=== PATIENT | female | born 1995 | race African-American/Black ===

== ENCOUNTER 2018-07-19 12:06 | Emergency (ER) | payer OTHER ==
[~2018-07-19] VITALS: Ht 157.5 cm; Wt 83.9 kg
[~2018-07-19 12:06] MED LIST: OFLO5DRO OS
[2018-07-19 12:15] VITALS: BP 122/56
--- NOTE | 2018-07-19 12:30 | PHYS DOC ---
Past Medical History Past Medical History: Other Additional Past Medical Histor: ovarian cysts Past Surgical History: No Surgical History Alcohol Use: None Drug Use: None Adult General Chief Complaint Chief Complaint: URINARY FREQUENCY HPI HPI Patient is a 22 year old female who presents requesting STD check. Patient states she has not had unprotected sex but she has had vaginal pain and is concerned she could have an STD. Review of Systems Review of Systems Constitutional: Denies fever or chills [] GI: Denies abdominal pain, nausea, vomiting, bloody stools or diarrhea [] female -concern for STDs : Denies dysuria or hematuria [] Musculoskeletal: Denies back pain or joint pain [] Integument: Denies rash or skin lesions [] Neurologic: Denies headache, focal weakness or sensory changes [] All other systems were reviewed and found to be within normal limits, except as documented in this note. Current Medications Current Medications Current Medications Medications (Trade) Dose Ordered Sig/Sophia Start Time Stop Time Status Last Admin Dose Admin Azithromycin (Zithromax) 1,000 mg 1X ONCE 07/19/18 12:45 07/19/18 12:46 DC 07/19/18 13:13 1,000 MG Ceftriaxone Sodium (Rocephin Im) 250 mg 1X ONCE 07/19/18 12:45 07/19/18 12:46 DC 07/19/18 13:13 250 MG Metronidazole (Flagyl) 2,000 mg 1X ONCE 07/19/18 12:45 07/19/18 12:46 DC 07/19/18 13:13 2,000 MG Allergies Allergies Allergies Coded Allergies Type Severity Reaction Last Updated Verified No Known Drug Allergies 02/11/16 No Physical Exam Physical Exam Constitutional: Well developed, well nourished, no acute distress, non-toxic appearance. [] Abdomen: Bowel sounds normal, soft, no tenderness, no masses, no pulsatile masses. [] Pelvic exam External pelvic appears normal, cervix is closed, no CMT, no adnexal tenderness. Trace amount of white discharge in the vaginal vault. Skin: Warm, dry, no erythema, no rash. [] Back: No tenderness, no CVA tenderness. [] Extremities: No tenderness, no cyanosis, no clubbing, ROM intact, no edema. [] Neurologic: Alert and oriented X 3, normal motor function, normal sensory function, no focal deficits noted. [] Psychologic: Affect normal, judgement normal, mood normal. [] Current Patient Data Vital Signs Vital Signs Date Time Temp Pulse Resp B/P (MAP) Pulse Ox O2 Delivery O2 Flow Rate FiO2 07/19/18 12:15 98.2 83 16 122/56 (78) 100 Room Air 98.2 Lab Values Laboratory Tests Test 07/19/18 12:20 07/19/18 12:24 Urine Collection Type Unknown Urine Color Yellow Urine Clarity Clear Urine pH 6.5 Urine Specific [place] 1.015 Urine Protein Negative mg/dL (NEG-TRACE) Urine Glucose (UA) Negative mg/dL (NEG) Urine Ketones (Stick) Negative mg/dL (NEG) Urine Blood Negative (NEG) Urine Nitrite Negative (NEG) Urine Bilirubin Negative (NEG) Urine Urobilinogen Dipstick 0.2 mg/dL (0.2 mg/dL) Urine Leukocyte Esterase Negative (NEG) Urine RBC 0 /HPF (0-2) Urine WBC 0 /HPF (0-4) Urine Squamous Epithelial Cells Few /LPF Urine Bacteria 0 /HPF (0-FEW) POC Urine HCG, Qualitative Hcg negative (Negative) Microbiology 07/19/18 Wet Prep - Final, Complete EKG EKG [] Radiology/Procedures Radiology/Procedures [] Course & Med Decision Making Course & Med Decision Making Pertinent Labs and Imaging studies reviewed. (See chart for details) This is a 22-year-old female patient presented to the ED today concerned for STDs. Patient was treated prophylaxis. Negative urine hCG, UA negative. Wet prep noted for bacterial vaginosis. D/C with Flagyl. Follow-up with PCP in one week. Dragon Disclaimer Dragon Disclaimer This electronic medical record was generated, in whole or in part, using a voice recognition dictation system. Departure Departure Impression: Primary Impression: Bacterial vaginosis Additional Impression: Concern about sexually transmitted disease in female without diagnosis Disposition: 01 HOME, SELF-CARE Condition: STABLE Referrals: DESHAUN JAIME MD (PCP) Follow-up with your doctor in one week Patient Instructions: Bacterial Vaginosis, [id number] Additional Instructions: You were seen in the emergency room for sexually transmitted diseases, the results of that tests will come back in 3 days, we will only contact you if your results are positive. Use protection at all times. He also have bacterial vaginosis, ensure you complete your antibiotics. Follow-up with your own doctor in 1-2 weeks as needed. Scripts Metronidazole (FLAGYL) 500 Mg Tablet 1 TAB PO BID, #14 TAB Prov: JASON BUCIO APRN 07/19/18 Problem Qualifiers JASON BUCIO APRN Jul 19, 2018 12:30
[2018-07-19] MEDS ORDERED: metroNIDAZOLE 500 MG TABLET PO ONE (12:45)
[2018-07-19] MEDS ORDERED: AZITHROMYCIN 250 MG TABLET. PO ONE (12:45)
[2018-07-19] MEDS ORDERED: cefTRIAXone IM 250 MG VIAL IM ONE (12:45)
[2018-07-19 12:49] LABS: BILIRUBIN,URINE NEGATIVE (NEG); CLARITY,URINE CLEAR; COLOR,URINE YELLOW; NITRITE,URINE NEGATIVE (NEG); PH,URINE 6.5; PROTEIN,URINE NEGATIVE (NEG-TRACE); UROBILINOGEN,URINE 0.2 mg/dL (0.2 mg/dL)
[2018-07-19 13:25] LABS: BACTERIA,URINE 0 /HPF (0-FEW); RBC,URINE 0 /HPF (0-2); SQUAMOUS EPITHELIAL CELL,UR FEW /LPF; WBC,URINE 0 /HPF (0-4)
[2018-07-19] MEDS ORDERED: METR500T PO (13:38)
[2018-07-20 15:26] LABS: GC PROBE Negative (Negative)
== END 2018-07-19 13:59 | disposition home or self-care (01) ==
LOC: ER 12:06
DX: N76.0 Acute vaginitis (principal); B96.89 Other specified bacterial agents as the cause of diseases classified elsewhere; Z20.2 Contact with and (suspected) exposure to infections with a predominantly sexual mode of transmission
CPT/HCPCS: 81001; 81025; 87491; 87591; 96372; 99284; J0696; Q0111; Q0144

== ENCOUNTER 2019-05-21 18:20 | Emergency (ER) | payer OTHER ==
[~2019-05-21] VITALS: Ht 157.5 cm; Wt 78.5 kg
[~2019-05-21 18:20] MED LIST changes: +METR500T PO
[2019-05-21 18:45] LABS: BILIRUBIN,URINE NEGATIVE (NEG); CLARITY,URINE CLEAR; COLOR,URINE YELLOW; NITRITE,URINE NEGATIVE (NEG); PROTEIN,URINE NEGATIVE (NEG-TRACE); UROBILINOGEN,URINE 0.2 mg/dL (0.2 mg/dL)
[2019-05-21 18:56] LABS: BACTERIA,URINE FEW /HPF (0-FEW); RBC,URINE 0 /HPF (0-2); SQUAMOUS EPITHELIAL CELL,UR MANY /LPF; WBC,URINE OCC /HPF (0-4)
[2019-05-21 19:04] LABS: BASO % 1 % (0-3); EOS % 1 % (0-3); HEMATOCRIT 36.1 % (36.0-47.0); HEMOGLOBIN 12.1 g/dL (12.0-15.5); LYMPH # 2.5 x10^3/uL (1.0-4.8); LYMPH % 43 % (24-48); MEAN CORPUSCULAR HEMOGLOBIN 27 pg (25-35); MEAN CORPUSCULAR HGB CONC 33 g/dL (31-37); MEAN CORPUSCULAR VOLUME 81 fL (79-100); MONO # 0.3 x10^3/uL (0.0-1.1); MONO % 6 % (0-9); NEUT % 51 % (31-73); PLATELET COUNT 192 x10^3/uL (140-400); RED BLOOD COUNT 4.43 x10^6/uL (3.50-5.40); RED CELL DISTRIBUTION WIDTH 15.5 % (11.5-14.5); WHITE BLOOD COUNT 5.9 x10^3/uL (4.0-11.0)
[2019-05-21 19:13] LABS: CALCIUM 9.1 mg/dL (8.5-10.1); CREATININE 0.9 mg/dL (0.6-1.0); GFR 94.7; POTASSIUM 3.3 mmol/L (3.5-5.1)
[2019-05-21 19:19] LABS: ALBUMIN 3.7 g/dL (3.4-5.0); TOTAL BILIRUBIN 0.4 mg/dL (0.2-1.0); TOTAL PROTEIN 7.5 g/dL (6.4-8.2)
[2019-05-21 20:06] VITALS: BP 108/72
--- NOTE | 2019-05-21 21:00 | RAD ---
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 Comparisons: None FINDINGS: Uterus measures 8.1 x 5.1 x 3.1 cm. Endometrium measures 1.3 cm in thickness. Right ovary measures 6.6 x 6.4 x 4.3 cm. Within the right ovary there is a isoechoic/hyperechoic round structure measuring 4.1 x 3.8 cm. Left ovary measures 3.0 x 2.4 x 1.5 cm. Mildly complex free fluid noted within the pelvis. IMPRESSION: 1. Mildly complex free fluid noted within the pelvis which may be physiologic. 2. 4.1 x 3.8 cm isoechoic/hyperechoic round structure within the right ovary. Differential considerations include dermoid and endometrioma. Discontinue better evaluated with nonemergent pelvic MRI. Electronically signed by: Coral Grider MD (05/21/2019 8:57 PM) [facility]
[2019-05-21] MEDS ORDERED: HYDR-3164 PO (22:00)
--- NOTE | 2019-05-21 22:09 | PHYS DOC ---
Past Medical History Past Medical History: Anxiety, Other Additional Past Medical Histor: ovarian cysts Past Surgical History: No Surgical History Alcohol Use: Occasionally Drug Use: None Adult General Chief Complaint Chief Complaint: ABDOMINAL PAIN HPI HPI Patient is a 23 year old female presents with chief complaint of right pelvic pain for the last couple of days were dull pain radiates around to the front she's had this before but it came back. 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 Current Medications Current Medications Current Medications Medications (Trade) Dose Ordered Sig/Sophia Start Time Stop Time Status Last Admin Dose Admin Azithromycin (Zithromax) 1,000 mg 1X ONCE 05/21/19 22:30 05/21/19 22:31 Ceftriaxone Sodium (Rocephin) 1 gm 1X ONCE 05/21/19 22:30 05/21/19 22:31 Allergies Allergies Allergies Coded Allergies Type Severity Reaction Last Updated Verified No Known Drug Allergies 02/11/16 No Physical Exam Physical Exam Constitutional: Well developed, well nourished, no acute distress, non-toxic appearance. [] HENT: Normocephalic, atraumatic, bilateral external ears normal, oropharynx moist, no oral exudates, nose normal. [] Eyes: PERRLA, EOMI, conjunctiva normal, no discharge. [] Neck: Normal range of motion, no tenderness, supple, no stridor. [] Pulmonary: Normal respiratory effort no increased work of breathing no obvious chest wall trauma Abdomen: Bowel sounds normal, soft, mild inguinal area on the right tenderness, no masses, no pulsatile masses. [] No McBurney's point tenderness Pelvic exam did show moderate vaginal discharge there is possible mild CMT this is questionable there is no adnexal tenderness noted there is some fullness of the right adnexa Skin: Warm, dry, no erythema, no rash. [] Back: No tenderness, no CVA tenderness. [] Extremities: No tenderness, no cyanosis, no clubbing, ROM intact, no edema. [] Neurologic: Alert and oriented X 3, normal motor function, normal sensory function, no focal deficits noted. [] Psychologic: Affect normal, judgement normal, mood normal. [] Current Patient Data Vital Signs Vital Signs Date Time Temp Pulse Resp B/P (MAP) Pulse Ox O2 Delivery O2 Flow Rate FiO2 05/21/19 20:06 88 16 108/72 (84) 98 Room Air 05/21/19 18:32 98.7 98.7 Lab Values Laboratory Tests Test 05/21/19 18:29 05/21/19 18:33 05/21/19 18:40 Urine Collection Type Unknown Urine Color Yellow Urine Clarity Clear Urine pH 6.0 Urine Specific [place] 1.015 Urine Protein Negative mg/dL (NEG-TRACE) Urine Glucose (UA) Negative mg/dL (NEG) Urine Ketones (Stick) Trace mg/dL (NEG) Urine Blood Negative (NEG) Urine Nitrite Negative (NEG) Urine Bilirubin Negative (NEG) Urine Urobilinogen Dipstick 0.2 mg/dL (0.2 mg/dL) Urine Leukocyte Esterase Negative (NEG) Urine RBC 0 /HPF (0-2) Urine WBC Occ /HPF (0-4) Urine Squamous Epithelial Cells Many /LPF Urine Bacteria Few /HPF (0-FEW) Urine Mucus Marked /LPF POC Urine HCG, Qualitative Hcg negative (Negative) White Blood Count 5.9 x10^3/uL (4.0-11.0) Red Blood Count 4.43 x10^6/uL (3.50-5.40) Hemoglobin 12.1 g/dL (12.0-15.5) Hematocrit 36.1 % (36.0-47.0) Mean Corpuscular Volume 81 fL (79-100) Mean Corpuscular Hemoglobin 27 pg (25-35) Mean Corpuscular Hemoglobin Concent 33 g/dL (31-37) Red Cell Distribution Width 15.5 % (11.5-14.5) H Platelet Count 192 x10^3/uL (140-400) Neutrophils (%) (Auto) 51 % (31-73) Lymphocytes (%) (Auto) 43 % (24-48) Monocytes (%) (Auto) 6 % (0-9) Eosinophils (%) (Auto) 1 % (0-3) Basophils (%) (Auto) 1 % (0-3) Neutrophils # (Auto) 3.0 x10^3/uL (1.8-7.7) Lymphocytes # (Auto) 2.5 x10^3/uL (1.0-4.8) Monocytes # (Auto) 0.3 x10^3/uL (0.0-1.1) Eosinophils # (Auto) 0.0 x10^3/uL (0.0-0.7) Basophils # (Auto) 0.0 x10^3/uL (0.0-0.2) Sodium Level 143 mmol/L (136-145) Potassium Level 3.3 mmol/L (3.5-5.1) L Chloride Level 105 mmol/L (98-107) Carbon Dioxide Level 24 mmol/L (21-32) Anion Gap 14 (6-14) Blood Urea Nitrogen 8 mg/dL (7-20) Creatinine 0.9 mg/dL (0.6-1.0) Estimated GFR (Cockcroft-Gault) 94.7 BUN/Creatinine Ratio 9 (6-20) Glucose Level 81 mg/dL (70-99) Calcium Level 9.1 mg/dL (8.5-10.1) Total Bilirubin 0.4 mg/dL (0.2-1.0) Aspartate Amino Transferase (AST) 14 U/L (15-37) L Alanine Aminotransferase (ALT) 17 U/L (14-59) Alkaline Phosphatase 57 U/L (46-116) Total Protein 7.5 g/dL (6.4-8.2) Albumin 3.7 g/dL (3.4-5.0) Albumin/Globulin Ratio 1.0 (1.0-1.7) Laboratory Tests 05/21/19 18:40 Laboratory Tests 05/21/19 18:40 Microbiology 05/21/19 Wet Prep - Final, Complete EKG EKG [] Radiology/Procedures Radiology/Procedures [] Impressions: IMPRESSION: 1. Mildly complex free fluid noted within the pelvis which may be physiologic. 2. 4.1 x 3.8 cm isoechoic/hyperechoic round structure within the right ovary. Differential considerations include dermoid and endometrioma. Discontinue better evaluated with nonemergent pelvic MRI. Electronically signed by: Coral Grider MD (05/21/2019 8:57 PM) [facility] Course & Med Decision Making Course & Med Decision Making Pertinent Labs and Imaging studies reviewed. (See chart for details) []given ctx/azithro due to vag d/c on pelvic. sleeping throughout er course without difficulty. ovarian cyst patient does have follow-up on Friday which is grade I did give he r the ultrasound report and we talked about return precautions we talked about pain medication she will take just a couple of days worth of that pain medication she knows not to drive she knows it is for short-term use only Dragon Disclaimer Dragon Disclaimer This electronic medical record was generated, in whole or in part, using a voice recognition dictation system. Departure Departure Impression: Primary Impression: Ovarian cyst Disposition: HOME, SELF-CARE Condition: STABLE Patient Instructions: Ovarian Cyst, [id number] Additional Instructions: see gynecology in 2-3 days for re-eval of ovarian cyst on the right ultarsound 05/21/19 4.1 by 3.8 cm isoechoic/hyperechoic round structure within the right ovary ddx include dermoid and endometrioma, nonemergent mri for evaluation. Scripts Hydrocodone/Apap 5-325 (NORCO 5-325 TABLET) 1 Each Tablet 1-2 EACH PO PRN Q6HRS PRN for PAIN, #8 as needed for pain Prov: IVONE VARELA MD 05/21/19 IVONE VARELA MD May 21, 2019 22:09
[2019-05-21] MEDS ORDERED: cefTRIAXone IV Push 1 GM VIAL. IVP ONE (22:30)
[2019-05-21] MEDS ORDERED: AZITHROMYCIN 250 MG TABLET. PO ONE (22:30)
[2019-05-24 23:07] LABS: GC PROBE Negative (Negative)
== END 2019-05-21 22:20 | disposition home or self-care (01) ==
LOC: ER 18:20
DX: N83.201 Unspecified ovarian cyst, right side (principal); F41.9 Anxiety disorder, unspecified
CPT/HCPCS: 36415; 76830; 76856; 80053; 81001; 81025; 85025; 87491; 87591; 99285; Q0111

== ENCOUNTER 2019-09-24 16:24 | Emergency (ER) | payer OTHER ==
[~2019-09-24] VITALS: Ht 157.5 cm; Wt 78.9 kg
[~2019-09-24 16:24] MED LIST changes: +HYDR-3164 PO
[2019-09-24 16:45] VITALS: BP 116/69
[2019-09-24 16:56] LABS: BILIRUBIN,URINE NEGATIVE (NEG); CLARITY,URINE CLEAR; COLOR,URINE YELLOW; NITRITE,URINE NEGATIVE (NEG); PH,URINE 6.5; PROTEIN,URINE NEGATIVE (NEG-TRACE); UROBILINOGEN,URINE 0.2 mg/dL (0.2 mg/dL)
[2019-09-24 17:06] LABS: BACTERIA,URINE FEW /HPF (0-FEW); RBC,URINE 0 /HPF (0-2); SQUAMOUS EPITHELIAL CELL,UR OCC /LPF
[2019-09-24] MEDS ORDERED: CEPH500C PO (17:49)
--- NOTE | 2019-09-24 17:50 | PHYS DOC ---
Past Medical History Past Medical History: Anxiety, Other Additional Past Medical Histor: ovarian cysts Past Surgical History: No Surgical History Alcohol Use: Occasionally Drug Use: None Adult General Chief Complaint Chief Complaint: URINARY FREQUENCY HPI HPI Patient is a 23 year old AA female who presents to the emergency department with complaints of increased urinary frequency, nausea, and headache for the last 3 days. Patient denies any vomiting, diarrhea, fever, shortness of breath, chest pain, or palpitations. She states that she has had a dry cough recently. Patient denies any irregular vaginal discharge, vaginal bleeding, or vaginal odor. She denies any dysuria, hematuria, or foul-smelling urine. The patient reports her last menstrual cycle was on September 08, 2019, she denies any concerns of . Patient currently rates her discomfort a 6 out of 10 on the pain scale and describes it as cramping she denies any alleviating or exacerbating factors patient denies any recent constipation, bloody stools, or diarrhea. All other ROS is neg unless otherwise noted in HPI. Review of Systems Review of Systems See Above Allergies Allergies Allergies Coded Allergies Type Severity Reaction Last Updated Verified No Known Drug Allergies 02/11/16 No Physical Exam Physical Exam See Above Constitutional: Well developed, well nourished, no acute distress, non-toxic appearance. [] HENT: Normocephalic, atraumatic, bilateral external ears normal, oropharynx moist, no oral exudates, nose normal. [] Eyes: PERRLA, EOMI, conjunctiva normal, no discharge. [] Neck: Normal range of motion, no tenderness, supple, no stridor. [] Cardiovascular:Heart rate regular rhythm, no murmur [] Lungs & Thorax: Bilateral breath sounds clear to auscultation [] Abdomen: Bowel sounds normal, soft, no tenderness, no masses, no pulsatile masses. [] Skin: Warm, dry, no erythema, no rash. [] Back: No tenderness, no CVA tenderness. [] Extremities: No tenderness, no cyanosis, no clubbing, ROM intact, no edema. [] Neurologic: Alert and oriented X 3, normal motor function, normal sensory function, no focal deficits noted. [] Psychologic: Affect normal, judgement normal, mood normal. [] Current Patient Data Vital Signs Vital Signs Date Time Temp Pulse Resp B/P (MAP) Pulse Ox O2 Delivery O2 Flow Rate FiO2 12/6/19 16:45 97.9 87 16 116/69 (85) 100 Room Air 97.9 Lab Values Laboratory Tests Test 09/24/19 16:37 09/24/19 16:39 Urine Color Yellow Urine Clarity Clear Urine pH 6.5 Urine Specific [place] 1.010 Urine Protein Negative mg/dL (NEG-TRACE) Urine Glucose (UA) Negative mg/dL (NEG) Urine Ketones (Stick) Negative mg/dL (NEG) Urine Blood Negative (NEG) Urine Nitrite Negative (NEG) Urine Bilirubin Negative (NEG) Urine Urobilinogen Dipstick 0.2 mg/dL (0.2 mg/dL) Urine Leukocyte Esterase Trace (NEG) Urine RBC 0 /HPF (0-2) Urine WBC 1-4 /HPF (0-4) Urine Squamous Epithelial Cells Occ /LPF Urine Bacteria Few /HPF (0-FEW) POC Urine HCG, Qualitative Hcg negative (Negative) EKG EKG [] Radiology/Procedures Radiology/Procedures [] Course & Med Decision Making Course & Med Decision Making Pertinent Labs and Imaging studies reviewed. (See chart for details) [] Dragon Disclaimer Dragon Disclaimer This electronic medical record was generated, in whole or in part, using a voice recognition dictation system. Departure Departure Impression: Primary Impression: Urinary tract infection Additional Impression: Increased urinary frequency Disposition: 01 HOME, SELF-CARE Condition: STABLE Referrals: DESHAUN JAIME MD (PCP) Patient Instructions: Urinary Frequency, Urinary Tract Infection, [id number] Additional Instructions: Fill prescription(s) and use as directed. Avoid bladder irritants such as caffeine, carbonation, and spicy foods. Increase clear fluids. Follow up with your primary care doctor if symptoms persist, return to the ER if symptoms worsen. Scripts Cephalexin (CEPHALEXIN) 500 Mg Capsule 1 CAP PO BID for 7 Days, #14 CAP 0 Refills Prov: EDDIE HATFIELD APRN 09/24/19 Problem Qualifiers Primary Impression: Urinary tract infection Urinary tract infection type: site unspecified Hematuria presence: without hematuria Qualified Codes: N39.0 - Urinary tract infection, site not specified EDDIE HATFIELD APRN Sep 24, 2019 17:50
== END 2019-09-24 17:54 | disposition home or self-care (01) ==
LOC: ER 16:24
DX: N39.0 Urinary tract infection, site not specified (principal); F41.9 Anxiety disorder, unspecified
CPT/HCPCS: 81001; 81025; 87086; 99284

== ENCOUNTER 2020-03-15 00:22 | Emergency (ER) | payer BC, OTHER ==
[~2020-03-15] VITALS: Ht 157.5 cm; Wt 80.0 kg
[~2020-03-15 00:22] MED LIST changes: +CEPH500C PO
[2020-03-15 00:25] VITALS: BP 124/84
[2020-03-15] MEDS ORDERED: CETI10TA24 PO (00:45)
--- NOTE | 2020-03-15 00:45 | PHYS DOC ---
Past Medical History Past Medical History: Anxiety, Other Additional Past Medical Histor: ovarian cysts Past Surgical History: No Surgical History Smoking Status: Never Smoker Alcohol Use: Occasionally Drug Use: None General Adult EDM: Chief Complaint: SORE THROAT HPI: HPI: Patient is a 24 year old female who presents with complaint of sinus drainage and feeling like her throat is been dry. She states that a few days ago she had lost her voice and voice started to come back yesterday. She does indicate that she has a history of allergies and does indicate that she has been blowing her nose a bit but it has been clear. She denies any fever. She states that her throat is a little bit sore but nothing significant. [] Review of Systems: Review of Systems: Constitutional: Denies fever or chills. [] HENT: Complains of congestion and sore throat. [] Respiratory: Denies cough or shortness of breath. [] Cardiovascular: Denies chest pain or edema. [] Heart Score: Risk Factors: Risk Factors: DM, Current or recent (<one month) smoker, HTN, HLP, family history of CAD, obesity. Risk Scores: Score 0 - 3: 2.5% MACE over next 6 weeks - Discharge Home Score 4 - 6: 20.3% MACE over next 6 weeks - Admit for Clinical Observation Score 7 - 10: 72.7% MACE over next 6 weeks - Early Invasive Strategies Allergies: Allergies: Allergies Coded Allergies Type Severity Reaction Last Updated Verified No Known Drug Allergies 02/11/16 No Physical Exam: PE: Constitutional: Well developed, well nourished, no acute distress, non-toxic appearance. [] HENT: Normocephalic, atraumatic, bilateral external ears normal, with posterior pharyngeal cobblestoning. [] Neck: Normal range of motion, no tenderness, supple, no stridor. [] Cardiovascular:Heart rate regular rhythm, no murmur [] Lungs & Thorax: Bilateral breath sounds clear to auscultation [] EKG: EKG: [] Radiology/Procedures: Radiology/Procedures: [] Course & Med Decision Making: Course & Med Decision Making Pertinent Labs and Imaging studies reviewed. (See chart for details) [] Dragon Disclaimer: Dragon Disclaimer: This electronic medical record was generated, in whole or in part, using a voice recognition dictation system. Departure Departure Impression: Primary Impression: Allergic rhinitis Qualified Codes: J30.9 - Allergic rhinitis, unspecified Disposition: HOME, SELF-CARE Condition: STABLE Referrals: NO PCP (PCP) Patient Instructions: Allergic Rhinitis Scripts Cetirizine Hcl (ZYRTEC) 10 Mg Tablet 1 TAB PO DAILY, #30 TAB Prov: GUIDO PERALTA Jr. DO 03/15/20 GUIDO PERALTA Jr. DO March 15, 2020 00:45
[2020-03-15] MEDS ORDERED: CETIRIZINE HCL 10 MG TABLET. PO ONE (01:00)
== END 2020-03-15 00:53 | disposition home or self-care (01) ==
LOC: ER 00:22
DX: J30.9 Allergic rhinitis, unspecified (principal)
CPT/HCPCS: 99282

== ENCOUNTER 2020-08-12 18:00 | Emergency (ER) | payer BC ==
[~2020-08-12] VITALS: Ht 157.5 cm; Wt 82.0 kg
[~2020-08-12 18:00] MED LIST changes: +CETI10TA74 PO
[2020-08-12 18:25] VITALS: BP 128/62
[2020-08-12] MEDS ORDERED: PRED50TA PO (19:23)
--- NOTE | 2020-08-12 19:23 | PHYS DOC ---
Past Medical History Past Medical History: Anxiety, Other Additional Past Medical Histor: ovarian cysts Past Surgical History: No Surgical History Smoking Status: Never Smoker Alcohol Use: Occasionally Drug Use: None General Adult EDM: Chief Complaint: SORE THROAT HPI: HPI: Patient is a 24 year old female with history of anxiety who presents to the ED today complaining of enlarged lymph nodes on the left side as well as subjective fevers for 1 week. Patient denies any sore throat, coughing, congestion. Denies any chest pain or shortness of breath. Review of Systems: Review of Systems: Constitutional: Reports subjective fevers Eyes: Denies change in visual acuity. [] HENT: Reports enlarged lymph nodes on the left side of the neck, denies nasal congestion or sore throat. [] Respiratory: Denies cough or shortness of breath. [] Cardiovascular: Denies chest pain or edema. [] GI: Denies abdominal pain, nausea, vomiting, bloody stools or diarrhea. [] : Denies dysuria. [] Musculoskeletal: Denies back pain or joint pain. [] Integument: Denies rash. [] Neurologic: Denies headache, focal weakness or sensory changes. [] Psychiatric: Denies depression or anxiety. [] Heart Score: Risk Factors: Risk Factors: DM, Current or recent (<one month) smoker, HTN, HLP, family history of CAD, obesity. Risk Scores: Score 0 - 3: 2.5% MACE over next 6 weeks - Discharge Home Score 4 - 6: 20.3% MACE over next 6 weeks - Admit for Clinical Observation Score 7 - 10: 72.7% MACE over next 6 weeks - Early Invasive Strategies Allergies: Allergies: Allergies Coded Allergies Type Severity Reaction Last Updated Verified No Known Drug Allergies 02/11/16 No Physical Exam: PE: Constitutional: Well developed, well nourished, no acute distress, non-toxic a ppearance. [] HENT: Normocephalic, atraumatic, bilateral external ears normal, oropharynx moist, no oral exudates, nose normal. [] +1 left anterior cervical adenopathy. Eyes: PERRLA, EOMI, conjunctiva normal, no discharge. [] Neck: Normal range of motion, no tenderness, supple, no stridor. [] Cardiovascular:Heart rate regular rhythm, no murmur [] Lungs & Thorax: Bilateral breath sounds clear to auscultation [] Abdomen: Bowel sounds normal, soft, no tenderness, no masses, no pulsatile masses. [] Skin: Warm, dry, no erythema, no rash. [] Back: No tenderness, no CVA tenderness. [] Extremities: No tenderness, no cyanosis, no clubbing, ROM intact, no edema. [] Neurologic: Alert and oriented X 3, normal motor function, normal sensory function, no focal deficits noted. [] Psychologic: Affect normal, judgement normal, mood normal. [] Current Patient Data: Vital Signs: Vital Signs Date Time Temp Pulse Resp B/P (MAP) Pulse Ox O2 Delivery O2 Flow Rate FiO2 08/12/20 18:25 98.3 89 14 128/62 (84) 97 Room Air 98.3 EKG: EKG: [] Radiology/Procedures: Radiology/Procedures: [] Course & Med Decision Making: Course & Med Decision Making Pertinent Labs and Imaging studies reviewed. (See chart for details) This is a 24-year-old female patient presenting to the ED today complaining of the left side of the neck as well patient is also complaining about subjective fevers. She is afebrile in the ED. Rapid strep test is negative. She refused Covid test. She was discharged to home. Supportive care measures provided. Follow-up with primary care doctor in 1 to 2 weeks [place] Disclaimer: [place] Disclaimer: This electronic medical record was generated, in whole or in part, using a voice recognition dictation system. Departure Departure Impression: Primary Impression: Lymphadenopathy, cervical Additional Impression: Fever Qualified Codes: R50.9 - Fever, unspecified Disposition: 01 DC HOME SELF CARE/HOMELESS Condition: STABLE Referrals: NO PCP (PCP) Follow-up in 1 to 2 weeks ARMINDA SALDIVAR MD Patient Instructions: Fever, Adult Additional Instructions: You were evaluated in the emergency room for enlarged lymph node on the left side of the neck. Your rapid strep test is negative. We recommend you continue taking Tylenol/ibuprofen as needed for pain or fever. Take the prescribed prednisone until completed. Follow-up with your own doctor in 1 to 2 weeks. Scripts Prednisone (PREDNISONE) 50 Mg Tablet 1 TAB PO DAILY, #5 TAB Prov: JASON BUCIO APRN 08/12/20 JASON BUCIO APRN Aug 12, 2020 19:23
== END 2020-08-12 19:32 | disposition home or self-care (01) ==
LOC: ER 18:00
DX: R59.0 Localized enlarged lymph nodes (principal); R50.9 Fever, unspecified
CPT/HCPCS: 87070; 87880; 99283